=== PATIENT | female | born 1960 | race African-American/Black ===

== ENCOUNTER 2021-03-16 20:52 | Outpatient (CLI) | payer BC | END 2021-03-16 20:53 | disposition home or self-care (01) | LOC: MADRAD 20:52 | PROVIDERS: ATTEND Physician Assistant | DX: R60.0 Localized edema (principal); S92.324A Nondisplaced fracture of second metatarsal bone, right foot, initial encounter for closed fracture; M79.89 Other specified soft tissue disorders ==

== ENCOUNTER 2025-06-10 14:43 | Outpatient (CLI) | payer BC ==
[2025-06-10 15:11] LABS: ALT (SGPT) 18 U/L (Less than 34); AST (SGOT) 26 U/L (11-34); Albumin 4.0 g/dL (3.1-4.5); Alkaline Phosphatase 67 U/L (40-110); Anion Gap 17 mmol/L (10-20); BUN (Urea Nitrogen) 28 mg/dL (9.8-20.1); Bilirubin, Total 0.6 mg/dL (0.3-1.2); Calc. Creatinine Clearance 0 mL/min (70-130); Calcium 9.9 mg/dL (7.8-10.44); Carbon Dioxide 22 mmol/L (23-31); Cardiac Risk 2.9 (Less than 4.5); Chloride 107 mmol/L (98-107); Cholesterol 129 mg/dl (< 200 Desired); Globulin 3.8 g/dL (2.4-3.5); Glucose 83 mg/dL (80-115); HDL Cholesterol 45 mg/dL (>60 Neg Risk); LDL Cholesterol, Calculated 68 mg/dL; Potassium 4.0 mmol/L (3.5-5.1); Sodium 142 mmol/L (136-145); Triglycerides 81 mg/dL (Less than 150)
== END 2025-06-10 14:44 | disposition home or self-care (01) ==
LOC: MADLAB 14:43
PROVIDERS: ATTEND Internal Medicine Cardiovascular Disease
DX: I10 Essential (primary) hypertension (principal); E11.9 Type 2 diabetes mellitus without complications
CPT/HCPCS: 36415; 80053; 80061